=== PATIENT | female | born 1960 | race African-American/Black ===

== ENCOUNTER → 2018-10-23 | Day surgery (SDC) | payer MEDICARE, MEDICAID ==
[~2018-10-23] MED LIST: LIDOCAINE HCL 1% 20ML VIAL (Pyxis) INJ ONE; SODIUM BICARBONATE 4% (2.4MEQ) 5ML VIAL IV ONE
== END | disposition home or self-care (01) ==
LOC: EDBD 11:07 → RAD 11:07
PROVIDERS: ATTEND Internal Medicine
DX: D34 Benign neoplasm of thyroid gland (principal)
CPT/HCPCS: 10005; 88172; 88173; J3490; 10022; 76942